=== PATIENT | female | born 1960 | race Caucasian/White ===

== ENCOUNTER 2018-02-27 10:01 | Day surgery (SDC) | payer BC ==
[2018-02-13 15:34] VITALS: BMI 28.0
[2018-02-27] MEDS ORDERED: PROPOFOL 20 ML ONE ×2 (10:12)
[2018-02-27] MEDS ORDERED: LIDOCAINE HCL/PF 2% SDV 5ML VIAL ONE (10:13)
[2018-02-27 11:41] VITALS: TEMP 98.2
[2018-02-27 12:09] VITALS: BP 120/79; PULSE 70
--- NOTE | 2018-03-01 11:01 | PATH ---
Surgical Pathology Report Patient Name: GREGOR KERR [facility]. Rec. #: [id number] /Age/Gender: 1960 (Age: 57) / F Account: [id number] Location: [facility] AMBULATORY Taken: 02/27/2018 Received: 02/27/2018 Reported: 03/01/2018 Physicians: Sammi Loya M.D. Specimen(s) Received A: BX DUODENUM B: BX ANTRUM C: GE JUNCTION Clinical History GERD Postoperative diagnosis: Rule out celiac disease, gastritis, rule out Ying's esophagus Final Diagnosis A. DUODENUM, BIOPSY: DUODENAL MUCOSA WITH NO PATHOLOGIC CHANGES. NO HISTOLOGIC EVIDENCE OF GLUTEN SENSITIVE ENTEROPATHY (CELIAC SPRUE) IDENTIFIED. B. STOMACH, ANTRUM, BIOPSY: GASTRIC ANTRAL MUCOSA WITH NO SIGNIFICANT PATHOLOGIC CHANGES. IMMUNOSTAIN FOR H. PYLORI IS NEGATIVE. C. GE JUNCTION, BIOPSY: GASTRIC TYPE MUCOSA WITH CHRONIC INFLAMMATION. NO INTESTINAL METAPLASIA IDENTIFIED (NO YING'S IDENTIFIED). Electronically Signed Alfonso Bradford M.D. Gross Description A. Received in formalin, labeled "duodenum" are 2 traylor, irregular portions of soft tissue measuring 0.3 and 0.4 cm. in greatest dimension. The specimens are submitted in toto in one cassette. B. Received in formalin, labeled "antrum" are 2 traylor, irregular portions of soft tissue measuring 0.2 and 0.3 cm. in greatest dimension. The specimens are submitted in toto in one cassette. C. Received in formalin, labeled "GE junction" is a traylor, irregular portion of soft tissue measuring 0.5 cm. in greatest dimension. The specimen is submitted in toto in one cassette. 02/28/2018 [facility]02/28/2018
== END 2018-02-27 12:11 | disposition home or self-care (01) ==
LOC: FASU-ENDO 10:01 → FASU 10:01 → FASU-ENDO 12:11
PROVIDERS: ATTEND Internal Medicine Gastroenterology
PROC: 0DB48ZX Excision of Esophagogastric Junction, Via Natural or Artificial Opening Endoscopic, Diagnostic (ICD-10-PCS; 2018-02-27)
PROC: 0DB98ZX Excision of Duodenum, Via Natural or Artificial Opening Endoscopic, Diagnostic (ICD-10-PCS; principal; 2018-02-27 11:16)
PROC: 0DB68ZX Excision of Stomach, Via Natural or Artificial Opening Endoscopic, Diagnostic (ICD-10-PCS; 2018-02-27 11:16)
DX: K20.8 Other esophagitis (principal); R10.13 Epigastric pain
CPT/HCPCS: 88305-TC; 88342-TC

== ENCOUNTER 2019-02-03 08:37 | Day surgery (SDC) | payer BC ==
[2019-02-03 09:07] VITALS: BMI 26.9
[2019-02-03 10:40] VITALS: TEMP 97.7
[2019-02-03 10:47] VITALS: PULSE 57
[2019-02-03 11:00] VITALS: BP 103/67
[2019-02-03 11:22] LABS: BASO % 0.8 % (0-2.0); EOS % 3.6 % (0-4.5); HEMATOCRIT 37.8 % (32.4-45.2); HEMOGLOBIN 12.9 GM/dL (10.7-15.3); LYMPH % 40.3 % (8-40); MCH 31.2 pg (25.7-33.7); MEAN CELL VOLUME 91.7 fl (80-96); MEAN PLT VOLUME 8.9 fl (7.5-11.1); MONO % 8.4 % (3.8-10.2); NEUT % 46.9 % (42.8-82.8); PLATELET COUNT 201 K/MM3 (134-434); RBC 4.12 M/mm3 (3.60-5.2); RDW 13.1 % (11.6-15.6); WHITE BLOOD COUNT 3.9 K/mm3 (4.0-10.0)
[2019-02-03 11:48] LABS: IRON SERUM 106 ug/dL (50-175); TOTAL IRON BINDING CAPACITY 251 ug/dL (250-450)
[2019-02-03 11:52] LABS: ALBUMIN 3.6 g/dl (3.4-5.0); BILIRUBIN,TOTAL 0.7 mg/dL (0.2-1); BLOOD UREA NITROGEN 7.8 mg/dL (7-18); CALCIUM 8.9 mg/dL (8.5-10.1); CREATININE 0.8 mg/dL (0.55-1.3); POTASSIUM 4.6 mmol/L (3.5-5.1); TOT PROT 6.6 g/dl (6.4-8.2)
[2019-02-04 08:06] LABS: ALPHA-1-ANTITRYPSIN 113 mg/dL (90-200)
[2019-02-04 14:08] LABS: TRANSGLUTAMINASE IGA < 2 U/mL (0-3); TRANSGLUTAMINASE IGG 9 U/mL (0-5)
[2019-02-04 16:07] LABS: MITOCHONDRIAL AB <20.0 Units (0.0-20.0)
[2019-02-04 19:07] LABS: HEP B CORE AB, TOT Negative (Negative)
--- NOTE | 2019-02-05 17:12 | PATH ---
Surgical Pathology Report Patient Name: GREGOR KERR [facility]. Rec. #: [id number] /Age/Gender: 1960 (Age: 58) / F Account: [id number] Location: [facility]ENDOS[facility] Taken: 02/03/2019 Received: 02/04/2019 Reported: 02/05/2019 Physicians: Severo Salgado M.D. Specimen(s) Received A: POLYP CECUM B: POLYP RIGHT COLON Clinical History Polyps surveillance, possible kidney donation Postoperative diagnosis: Diverticulosis, colon polyps Final Diagnosis A. CECUM POLYP, POLYPECTOMY: TUBULAR ADENOMA. B. RIGHT COLON POLYP, POLYPECTOMY: TUBULAR ADENOMA. Electronically Signed Jermaine Soto M.D. Gross Description A. Received in formalin, labeled "polyp cecum" is a traylor, irregular portion of soft tissue measuring 0.4 cm. in greatest dimension. The specimen is submitted in toto in one cassette. B. Received in formalin, labeled "polyp right colon" are 2 traylor, irregular portions of soft tissue measuring 0.3 and 0.4 cm. in greatest dimension. The specimens are submitted in toto in one cassette. 02/04/2019 [place]02/04/2019
== END 2019-02-03 11:51 | disposition home or self-care (01) ==
LOC: JASU-ENDO 08:37
PROVIDERS: ATTEND Internal Medicine Gastroenterology
PROC: 0DBF8ZX Excision of Right Large Intestine, Via Natural or Artificial Opening Endoscopic, Diagnostic (ICD-10-PCS; 2019-02-03)
PROC: 0DBH8ZX Excision of Cecum, Via Natural or Artificial Opening Endoscopic, Diagnostic (ICD-10-PCS; principal; 2019-02-03 09:45)
DX: Z12.11 Encounter for screening for malignant neoplasm of colon (principal); Z86.010 Personal history of colon polyps; D12.0 Benign neoplasm of cecum; K57.30 Diverticulosis of large intestine without perforation or abscess without bleeding; K64.8 Other hemorrhoids
CPT/HCPCS: 36415; 80053; 82103; 82390; 82728; 83516; 83540; 83550; 85025; 86038; 86704; 86706; 86707; 86708; 86709; 86803; 87340; 88305-TC

== ENCOUNTER 2019-05-31 14:11 | Emergency (ER) | payer BC ==
[2019-05-31 14:31] VITALS: BMI 27.4
[2019-05-31] MEDS ORDERED: SODIUM CHLORIDE 1,000 ML IV STA (15:05)
[2019-05-31 15:53] LABS: BASO % 0.5 % (0-2.0); EOS % 2.7 % (0-4.5); HEMATOCRIT 39.4 % (32.4-45.2); HEMOGLOBIN 13.4 GM/dL (10.7-15.3); LYMPH % 26.7 % (8-40); MCH 31.1 pg (25.7-33.7); MCHC 34.1 g/dl (32.0-36.0); MEAN CELL VOLUME 91.2 fl (80-96); MEAN PLT VOLUME 8.3 fl (7.5-11.1); MONO % 5.3 % (3.8-10.2); NEUT % 64.8 % (42.8-82.8); PLATELET COUNT 253 K/MM3 (134-434); RBC 4.32 M/mm3 (3.60-5.2); RDW 13.1 % (11.6-15.6)
--- NOTE | 2019-05-31 15:57 | PDOC ---
Documentation entered by Silvia Moise SCRIBE, acting as scribe for Eileen Brannon MD. Eileen Brannon MD: This documentation has been prepared by the Suma brooks Brenda, SCRIBE, under my direction and personally reviewed by me in its entirety. I confirm that the documentation accurately reflects all work, treatment, procedures, and medical decision making performed by me. History of Present Illness - General Chief Complaint: Pain Stated Complaint: ABDOMINAL PAIN Time Seen by Provider: 05/31/19 14:45 History Source: Patient Exam Limitations: No Limitations - History of Present Illness Initial Comments: 05/31/19 15:24 The patient is a 58 year old female, with a significant PMH of thyroid nodule (s /p thyroidectomy) who presents to the emergency department with transient sharp periumbilical abdominal pain and a presyncopal episode. As per patient, about an hour ago, she was visiting her ill father who is admitted upstairs. She went to the cafeteria to get food, at which time she felt herself wanting to faint and dizzy for about 10 seconds and concommitantly felt sharp periumbilical pain that has since resolved. She reports no syncopal episode and no moments of unconsciousness. She does endorse nausea after episode. Patient currently reports being asymptomatic. +young Grandson with virus/cold symptoms pt has been having some mild cough/congestion x several days, does not bother her +sick father who is hospitalized upstairs son who is awaiting kidney transplant, which has also been causing her stress. admits to not eating and drinking as much as she should over the last several days. Denies fever, chills, chest pain, SOB, palpitation, weakness, V, D, constipation , bladder and bowel problems, hematuria, dysuria, urgency or frequency, leg swelling, No new changes in medications. no suspicious food intake. Allergies: NKA Past surgical history: Thyroidectomy Social history: Social alcohol use. No tobacco, ETOH or drug use. Meds: as documented in EMR PCP: Caty 05/31/19 15:55 05/31/19 16:14 05/31/19 16:17 Past History - Past Medical History Allergies/Adverse Reactions: Allergies Allergy/AdvReac Type Severity Reaction Status Date / Time No Known Allergies Allergy Verified 05/31/19 14:31 Home Medications: Ambulatory Orders Levothyroxine [Synthroid -] 100 mcg PO DAILY 01/11/16 Cholecalciferol (Vitamin D3) [Vitamin D3] 2,000 unit PO DAILY 02/13/18 Anemia: No Asthma: No Cancer: No Cardiac Disorders: No CVA: No COPD: No CHF: No Dementia: No Diabetes: No GI Disorders: Yes (Possible Celiac Disease,COLON POLYPS, diverticulosis, Gallbladder polyp) Disorders: No HTN: No Hypercholesterolemia: Yes (no meds) Liver Disease: No Seizures: No Thyroid Disease: Yes (HYPOTHYROIDISM) - Surgical History Abdominal Surgery: No Appendectomy: No Cardiac Surgery: No Cholecystectomy: No Lung Surgery: No Neurologic Surgery: No Orthopedic Surgery: No - Psycho Social/Smoking Cessation Hx Smoking History: Never smoked Have you smoked in the past 12 months: No If you are a former smoker, when did you quit?: 33 YEARS AGO Information on smoking cessation initiated: No Hx Alcohol Use: No Drug/Substance Use Hx: No Substance Use Type: Alcohol Hx Substance Use Treatment: No Review of Systems - Review of Systems Able to Perform ROS?: Yes Comments:: 05/31/19 15:25 Constitutional: no fevers or chills. HEENT:(+) Dizziness. no headache. No congestion. No visual/hearing disturbances. CVS: (+) Pre syncope. no cp or syncope. Resp: no sob. No cough. Gastrointestinal: (+) abdominal pain (+)nausea. No vomiting Genitourinary: no urinary sx, hematuria. MUSCULOSKELETAL: No joint pain and swelling. No neck or back pain. SKIN: no redness or skin changes, no discharge, no rash. No wounds. Hematologic: no easy bruising/bleeding. NEUROLOGIC: No headache, dizziness, LOC or altered mental status. No weakness, numbness or tingling. Psych: no anxiety or depression Allergic/Immunologic: no allergies All other systems reviewed and negative, or as documented in HPI. 05/31/19 15:56 *Physical Exam - Vital Signs Last Vital Signs Temp Pulse Resp BP Pulse Ox 97.4 F L 65 16 95/64 100 05/31/19 14:15 05/31/19 14:15 05/31/19 14:15 05/31/19 14:15 05/31/19 14:15 - Physical Exam 05/31/19 16:02 General: Well appearing, awake and alert, NAD. HEENT: NCAT, PERRL, EOMI, clear conjunctiva, anicteric, moist mucous membranes , clear oropharynx, no oral lesions.. Neck: neck supple, FROM Resp: CTAB, normal and even respirations, no respiratory distress CVS: RRR, no murmurs, 2+ peripheral pulses throughout, no peripheral edema Abdomen: soft, NTND, no rebound or guarding. No CVAT. Back: nontender, normal inspection and ROM MSK: no edema, HERNANDEZ x4, ROM intact. No clubbing or cyanosis. normal bulk and tone. Extremities: no calf tenderness Neuro: alert, oriented appropriately; no focal neurologic deficits, clear speech. Skin: warm and well perfused, cap refill <2 sec, normal color 05/31/19 16:17 Heart Score/ECG Review #1 ECG reviewed & interpreted by me at: 15:15 General ECG Interpretation: Sinus Rhythm, Normal Rate, Normal Intervals 05/31/19 15:56 EKG normal sinus rhythm at 72 bpm, no interval abnormalities, narrow QRS, ST and T wave segments and morphology normal. Nonspecific T wave abnormalities ED Treatment Course - LABORATORY CBC & Chemistry Diagram: 05/31/19 15:40 05/31/19 15:40 - ADDITIONAL ORDERS Additional order review: Laboratory Results 05/31/19 14:29 POC Glucometer 110 05/31/19 14:29 POC Glucometer 110 Medical Decision Making - Medical Decision Making 05/31/19 16:17 Vital Signs Temp Pulse Resp BP Pulse Ox 97.4 F L 65 16 95/64 100 05/31/19 14:15 05/31/19 14:15 05/31/19 14:15 05/31/19 14:15 05/31/19 14:15 pt is wel appearing, nontoxic no fever no syncope on HPI, phys exam unremarkable. BP soft, admits to feeling dehydrated, not keeping up with fluids/food, as she has been busy and with sick family member/sick grandson with URI sx. labs and lytes wnl lipase and LFTs normal given IVF, abdomen soft, nontender. no peritoneal findings, no systemic findings so doubt intra abdominal infection/inflammation, cardiac arrhythmia/ no cp or sob. neuro intact, no focal neuro deficits. feels much improved, instructions to rest, reduce stress, hydration tolerated PO challenge. VS rechecked, normotensive. Pt to be discharged in stable condition. Patient and family made aware of clinical impression, treatment recommendations and disposition plan, return precautions discussed (including but not limited to new or persistent/worsening symptoms, pain, fevers, or signs of infection, chest pain, respiratory distress , inability to tolerate oral intake, dehydration, syncope, or neurologic changes ). Follow up with PMD as recommended, follow up information provided, take medications as instructed for duration of time. continue with supportive care, avoid triggers and precipitants. All questions answered to patient's satisfaction and expressed understanding and comfort with this. At the time of discharge, the patient is alert, clinically improved, tolerating po and verbalizes understanding of instructions, satisfied with the care received and felt comfortable with the plan. Patient does not suffer from an acute life- threatening medical condition at this time and is safe for outpatient follow- up. 05/31/19 16:23 Discharge - Discharge Information Problems reviewed: Yes Clinical Impression/Diagnosis: Syncope, near, Nausea, Abdominal pain Condition: Improved Disposition: HOME - Admission No - Follow up/Referral Referrals: Chel Byrne MD [Primary Care Provider] - - Patient Discharge Instructions Patient Printed Discharge Instructions: DI for Syncope in Adults (Fainting), DI for Abdominal Pain-Adult, DI for Nausea -- Adult Additional Instructions: 1) Please follow-up with your primary care doctor in the next 1-2 days. Please call tomorrow for for any urgent issues. you were seen for nausea/abdominal pain and near fainting. 2) You were given a copy of the tests performed today. Please bring the results with you and review them with your primary care doctor. Your laboratory results were normal, 3) If you have any worsening of symptoms or any other concerns please return to the ED immediately. Return if worsening symptoms including fevers, headache, vomiting, visual or hearing disturbances, abdominal pain, chest pain, shortness of breath, syncope, dehydration, inability to take things by mouth/vomiting, altered mental status, or worsening concerning symptoms. Stay well hydrated and rest adequately, avoid any major stress that could exacerbate your symptoms.. Make an appointment. If you cannot follow-up with your primary care doctor please return to the ED if symptoms worsen or persist or recur. - Post Discharge Activity Work/Back to School Note: Back to Work
[2019-05-31 16:22] LABS: ALBUMIN 3.8 g/dl (3.4-5.0); BILIRUBIN,TOTAL 0.4 mg/dL (0.2-1); BLOOD UREA NITROGEN 16.7 mg/dL (7-18); CALCIUM 9.3 mg/dL (8.5-10.1); CREATININE 0.9 mg/dL (0.55-1.3); POTASSIUM 4.3 mmol/L (3.5-5.1); TOT PROT 7.3 g/dl (6.4-8.2)
[2019-05-31 16:50] VITALS: BP 117/89; PULSE 90; TEMP 98.4
--- NOTE | 2019-06-02 10:45 | EKG ---
Test Reason : Blood Pressure : / mmHG Vent. Rate : 072 BPM Atrial Rate : 072 BPM P-R Int : 140 ms QRS Dur : 088 ms QT Int : 412 ms P-R-T Axes : 055 -31 010 degrees QTc Int : 451 ms NORMAL SINUS RHYTHM POSSIBLE LEFT ATRIAL ENLARGEMENT LEFT AXIS DEVIATION LOW VOLTAGE QRS ABNORMAL ECG WHEN COMPARED WITH ECG OF 14-JAN-2018 10:50, T WAVE VARIATION Confirmed by RAY WANG, ZANE ([id number]) on 06/02/2019 10:45:14 AM Referred By: Confirmed By:ZANE BELL MD
== END 2019-05-31 16:50 | disposition home or self-care (01) ==
LOC: JER 14:11
PROC: 3E0337Z Introduction of Electrolytic and Water Balance Substance into Peripheral Vein, Percutaneous Approach (ICD-10-PCS; principal; 2019-05-31)
DX: R10.33 Periumbilical pain (principal); R55 Syncope and collapse; E89.0 Postprocedural hypothyroidism; E78.00 Pure hypercholesterolemia, unspecified; Z87.19 Personal history of other diseases of the digestive system
CPT/HCPCS: 36415; 80053; 82962; 83690; 85025; 93005; 93010; 99283-25; J7030

== ENCOUNTER 2021-06-08 10:55 | Emergency (ER) | payer BC ==
[2021-06-08 11:09] VITALS: BMI 28.0
[2021-06-08] MEDS ORDERED: SODIUM CHLORIDE 1,000 ML IV STA (11:57)
[2021-06-08] MEDS ORDERED: ACETAMINOPHEN 1000 MG/100 ML VIAL IVPB ONE (11:57)
[2021-06-08] MEDS ORDERED: ACETAMINOPHEN INJECTION 100 ML IVPB ONE (12:04)
[2021-06-08 13:28] LABS: BASO % 0.5 % (0-2.0); EOS % 4.7 % (0-4.5); HEMATOCRIT 40.8 % (32.4-45.2); HEMOGLOBIN 13.9 GM/dL (10.7-15.3); LYMPH % 19.6 % (8-40); MCH 30.2 pg (25.7-33.7); MCHC 34.2 g/dl (32.0-36.0); MEAN CELL VOLUME 88.3 fl (80-96); MEAN PLT VOLUME 8.9 fl (7.5-11.1); MONO % 6.4 % (3.8-10.2); NEUT % 68.8 % (42.8-82.8); PLATELET COUNT 229 10^3/uL (134-434); RBC 4.61 M/mm3 (3.60-5.2); RDW 13.8 % (11.6-15.6); WHITE BLOOD COUNT 6.8 K/mm3 (4.0-10.0)
[2021-06-08 13:53] LABS: CHLORIDE 107 mmol/L (98-107); SODIUM 140 mmol/L (136-145)
[2021-06-08 13:55] LABS: CALCIUM 8.6 mg/dL (8.5-10.1)
[2021-06-08 13:56] LABS: ALBUMIN 3.6 g/dl (3.4-5.0); ANION GAP 6 MMOL/L (8-16); CO2 26 mmol/L (21-32)
[2021-06-08 13:59] LABS: CREATININE 0.7 mg/dL (0.55-1.3); SGOT/AST 25 U/L (15-37); SGPT/ALT 33 U/L (13-61)
[2021-06-08 14:01] LABS: BILIRUBIN,TOTAL 0.4 mg/dL (0.2-1); TOT PROT 7.1 g/dl (6.4-8.2)
[2021-06-08 14:02] LABS: ALK PHOS 81 U/L (45-117)
[2021-06-08] MEDS ORDERED: KETOROLAC TROMETHAMINE 15 MG/ML VIAL IVPUSH ONE (14:02)
[2021-06-08 14:03] LABS: GLUCOSE,RANDOM 109 mg/dL (74-106)
[2021-06-08] MEDS ORDERED: KETOROLAC TROMETHAMINE 15 MG/ML VIAL ONE (14:20)
[2021-06-08 16:43] VITALS: BP 127/90; PULSE 61; TEMP 98.3
[2021-06-08 19:03] LABS: PH,URINE 5.5 (5.0-8.0); URINE APPEARANCE CLEAR; URINE BILIRUBIN NEGATIVE (NEGATIVE); URINE COLOR YELLOW; URINE GLUCOSE (UA) NEGATIVE (NEGATIVE); URINE KETONE NEGATIVE (NEGATIVE); URINE LEUK ESTERASE NEGATIVE (NEGATIVE); URINE NITRITE NEGATIVE (NEGATIVE); URINE PROTEIN NEGATIVE (NEGATIVE); URINE UROBILINOGEN 0.2 mg/dL (0.2-1.0)
== END 2021-06-08 16:53 | disposition home or self-care (01) ==
LOC: JER 10:55
PROC: 3E033GC Introduction of Other Therapeutic Substance into Peripheral Vein, Percutaneous Approach (ICD-10-PCS; principal; 2021-06-08)
DX: R55 Syncope and collapse (principal); M79.10 Myalgia, unspecified site
CPT/HCPCS: 36415; 71045-TC-FY; 74177-TC; 80053; 81003; 82550; 84484; 85025; 93005; 93010; 99285-25; C9803; J0131; U0003; U0005

== ENCOUNTER 2022-12-22 14:16 | Emergency (ER) | payer BC ==
[2022-12-22 14:47] VITALS: BP 114/77; PULSE 67; RESP 18; TEMP 98; BMI 28.8
== END 2022-12-22 18:30 | disposition home or self-care (01) ==
LOC: JER 14:16
DX: M54.9 Dorsalgia, unspecified (principal); R05.8 Other specified cough; Z20.822 Contact with and (suspected) exposure to COVID-19
CPT/HCPCS: 0241U-QW; 71046-TC-FY; 99284-25